=== PATIENT | female | born 1965 | race Caucasian/White ===

== ENCOUNTER 2019-12-16 06:19 | Day surgery (SDC) | payer BC, OTHER ==
[~2019-12-16] VITALS: Ht 160 cm; Wt 60.3 kg
[~2019-12-16 06:19] MED LIST: CLONAZEPAM 0.50.5 M1 PO; PRINIVIL20 M1 PO; ZOLOFT100 MG PO
[2019-12-16 09:24] VITALS: BP 124/59
--- NOTE | 2019-12-16 09:33 | O ---
[facility] [place] [address] OPERATIVE REPORT Name: NAHOMI STROUD Room #: 150-3 [facility]..#: [id number] Admission: 12/16/19 Attend Phys: Dayton Cervantes MD Discharge: Date of : 65 Report #: [id number] THIS REPORT FOR: cc: Kirt Villalpando,Kirt Reilly,Dayton Ro MD ~ CC: Dayton Villalpando DATE OF SERVICE: 12/16/2019 PREOPERATIVE DIAGNOSIS: Left knee medial meniscus tear and chondromalacia, medial compartment and patellofemoral compartment. POSTOPERATIVE DIAGNOSIS: Left knee medial meniscus tear and chondromalacia, medial compartment and patellofemoral compartment. PROCEDURE: Left knee arthroscopy with partial medial meniscectomy and debridement of chondromalacia, medial femoral condyle and patellofemoral articulation. SURGEON: Dayton Cervantes MD INDICATIONS FOR PROCEDURE: This slender, fit and active 54-year-old female complains of progressive left knee pain. Symptoms started several months ago after a turning or twisting event at home. Symptoms have persisted despite appropriate conservative management. MRI study suggests damage to the medial meniscus as well as some more generalized chondromalacia at the patella and the medial compartment. Given these findings and persistent symptoms, she has decided to go ahead with arthroscopic evaluation and debridement. DESCRIPTION OF PROCEDURE: The patient was taken to the operating room where she was placed under general anesthesia. Prophylactic intravenous antibiotics were administered. The left knee and leg were meticulously prepped and draped and a thigh tourniquet inflated to 300 mmHg. A lateral suprapatellar inflow cannula was placed. The arthroscope and probe were introduced. Various compartments were sequentially visualized and documented with arthroscopic photography. The medial compartment revealed some damage to the medial meniscus, but this was not as significant as the MRI might have suggested. There was some fraying along the mid, medial and anterior portion, but this only involved about the inner one-third. This was debrided with a rotary shaver. The rest of the meniscus appears to be intact and stable. There was moderate chondromalacia on the medial femoral condyle with grade 2 damage throughout most of the articular surface, moderate limited debridement was performed removing the loose, irregular fragmented cartilage. There were few areas of deeper fissuring, but there was no area of exposed subchondral bone. The corresponding surface on the [address] [address] OPERATIVE REPORT Name: NAHOMI STROUD Room #: 150-3 [facility]#: [id number] Admission: 12/16/19 Attend Phys: Dayton Cervantes MD Discharge: Date of : 65 Report #: [id number] medial tibial plateau was in better shape with grade 1 fissuring and grooving. No debridement there was necessary. The intercondylar notch reveals the cruciate ligaments to be intact and functioning normally. No debridement here was necessary. The lateral compartment reveals mild chondromalacia and very minimal fraying along the inner margin of lateral meniscus. Limited debridement here was performed. The patellofemoral articulation revealed more significant chondromalacia damage. There was an area of deep cartilage damage in the mid portion of the trochlear groove. This extended down to subchondral bone. The defect was about 8-10 mm in diameter and a 12-14 mm in length. The side margins were trimmed and smoothed to make a more smooth even defect. The loose debris was removed. There was also an area of similar moderate grade 3 chondromalacia in the mid portion of the patella. This area was gently debrided, removing only the loose, irregular cartilage around the margin of the deeper defect. The rest of the cartilage throughout the patella looked to be in good shape. The suprapatellar pouch revealed no obvious problems and mild cartilage debris was evacuated. The entire knee was copiously irrigated. All excess fluid was evacuated from the knee. The knee was then injected with 80 mg of Depo-Medrol and 20 mL of 0.5% Marcaine with epinephrine. The puncture sites were closed with interrupted nylon suture. Sterile dressing was applied. The patient was awakened and returned to recovery room in good condition. <ELECTRONICALLY SIGNED> By: Dayton Cervantes MD 12/16/19 0933 [id number] Dayton Cervantes MD /nt
--- NOTE | 2019-12-16 16:40 | EKG ---
[facility] [place] [address] ELECTROCARDIOGRAM REPORT Name: NAHOMI STROUD Room #: [address] [place] [address] M..#: [id number] Admission: 12/16/19 Attend Phys: Dayton Cervantes MD Discharge: Date of : 65 Report #: [id number] THIS REPORT FOR: cc: Kirt Villalpando James L. DO Lundgren, Craig H. MD [facility] ~ THIS REPORT FOR: //name// [facility] Test Date: 2019-12-16 Test Time: 07:06:17 Pat Name: NAHOMI STROUD Department: Room: 150 Gender: F [employer]: Lily NEFF : 1965 Requested By: Bryan Valle Order Number: [id number] MD: Binh Zamora Measurements Intervals [place] Rate: 62 P: 69 VA: 181 QRS: 73 QRSD: 90 T: 39 QT: 418 QTc: 425 Interpretive Statements Sinus rhythm Normal tracing No previous ECG available for comparison Electronically Signed On 12-16-2019 16:39:27 CDT by Binh Zamoar [email or web address] <ELECTRONICALLY SIGNED> By: Binh Zamora MD, [facility] 12/16/19 1639 5 Binh Zamora MD, [facility] /EPI
== END 2019-12-16 09:35 | disposition home or self-care (01) ==
LOC: TBA 06:19 → OR 06:19 → TBA 06:20 → OR 09:35
PROVIDERS: ATTEND Orthopaedic Surgery
DX: S83.242A Other tear of medial meniscus, current injury, left knee, initial encounter (principal); S83.282A Other tear of lateral meniscus, current injury, left knee, initial encounter; M94.262 Chondromalacia, left knee; I10 Essential (primary) hypertension; F32.9 Major depressive disorder, single episode, unspecified; F41.9 Anxiety disorder, unspecified; F17.210 Nicotine dependence, cigarettes, uncomplicated; Z98.890 Other specified postprocedural states; Z79.899 Other long term (current) drug therapy; Z90.710 Acquired absence of both cervix and uterus; X58.XXXA Exposure to other specified factors, initial encounter; Y93.89 Activity, other specified; Y92.89 Other specified places as the place of occurrence of the external cause; Y99.8 Other external cause status
CPT/HCPCS: 50010; 50101; 50405; 51038; 54170; 56526; 57103; 57179; 62110; 62900; 70005